=== PATIENT | female | born 1945 | race Caucasian/White ===

== ENCOUNTER 2019-11-11 15:28 | Outpatient (CLI) | payer MEDICARE, OTHER, SELFPAY ==
--- NOTE | ~2019-11-11 | XR_ITS ---
EXAMINATION: XR abdomen/kub 1V DATE: 11/11/2019 15:50 INDICATION: Gross hematuria. TECHNIQUE: A supine view of the abdomen on 2 radiographs was obtained. COMPARISON: CT abdomen and pelvis 11/11/2019 FINDINGS: There are no dilated loops of bowel. There are nodules in the lungs. There are phleboliths in the pelvis. Calcified uterine fibroids are noted. IMPRESSION: 1. No visible urolithiasis. 2. Pulmonary nodules, consistent with metastatic disease. Reviewed, dictated and finalized at location B.
--- NOTE | ~2019-11-11 | CT_ITS ---
EXAMINATION: CT abdomen pelvis wo/w con EXAM DATE: 11/11/2019 16:20 INDICATION: Gross hematuria. TECHNIQUE: Spiral CT of the abdomen and pelvis was performed without contrast. The patient was then injected with small bolus intravenous Omnipaque 350, followed by delay of approximately 10 minutes to allow collecting system to opacify. A post contrast scan abdomen and pelvis was performed during inj ection of remaining contrast. A total of 130 cc intravenous contrast was administered. The dose-parish th product (DLP) for this examination was 2033.17 mGy-cm. The exposure was tailored according to pat ient size (auto mA exposure control), and iterative reconstruction (ASIR) was used as additional dose reduction technique. There is no prior study for comparison. FINDINGS: Enhancing solid right renal mass measuring 11 cm, most likely renal cell cancer. Some malig duong suspected to be extending into the left renal vein as well. The left kidney is normal. No contr ast excretion identified from the right kidney, which has very small amount of normal renal parenchym a. The bladder is unremarkable. Fibroid uterus. The liver, spleen, adrenal glands and pancreas are unremarkable. Gallbladder is unremarkable. No bi liary obstruction. There is no retroperitoneal or pelvic lymphadenopathy. The appendix is normal. There is small sliding gastroesophageal hiatal hernia. There is expected am ount of colonic stool. No free intraperitoneal gas. The heart is normal in size. There are no pe ricardial or pleural effusions. There are approximately 20 pulmonary nodules at the lung bases, larg est in the right lower lobe measuring 1.5 cm, suspicious for pulmonary metastatic disease. There are several small osteolytic regions is including in the right 8th rib, which could indicate early bony metastatic disease as well. IMPRESSION: 1. Right renal 11 cm mass with some renal vein invasion suspected. 2. Approximately 20 pulmonary lesions likely metastatic disease. 3. 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 Reviewed, dictated and finalized at location A.
== END 2019-11-11 15:29 | disposition home or self-care (01) ==
PROVIDERS: PCP Internal Medicine; Visit Provider Nurse Practitioner Adult Health
DX: R31.0 Gross hematuria (principal); N28.89 Other specified disorders of kidney and ureter; R91.8 Other nonspecific abnormal finding of lung field; R16.0 Hepatomegaly, not elsewhere classified
CPT/HCPCS: 74018; 74178; Q9967